=== PATIENT | female | born 1985 | race Caucasian/White ===

== ENCOUNTER 2019-12-05 08:46 | Observation (INO) ==
[2019-12-05 10:51] LABS: Basophils # 0.1 10*3/uL (0.0-0.2); Basophils % 0.3 % (0.0-0.8); Eosinophils # 0.1 10*3/uL (0.0-0.87); Eosinophils % 0.4 % (0.00-10.9); Hematocrit 36.7 VOL% (35.7-47.0); Hemoglobin 12.2 GM/DL (12.0-16.0); Immature Granulocytes % 0.5 %; Immature Granulocytes Absolute 0.08 #; Lymphocytes # 2.3 10*3/uL (1.4-4.0); Lymphocytes % 14.3 % (21.3-54.2); Mean Corpuscular HGB Conc 33.2 GM/DL (32-36); Mean Corpuscular Volume 81.2 FL (87-102); Monocytes % 6.3 % (1.7-12.7); Neutrophils % 78.2 % (38.7-73.9); Osmolality,Calculated 275.5 MOS/KG (273-304); Platelet Count 388 T/CUMM (130-400); Red Blood Count 4.52 MC/CUMM (3.8-5.5); Red Cell Distribution Width 13.5 % (9.3-17.3); White Blood Count 15.7 T/CUMM (4-12)
[2019-12-05 10:53] LABS: Bacteria,Urine Occasional /HPF (Few); Bilirubin,Urine Negative (Negative); Blood, Urine Negative (Negative); Glucose,Urine (UA) Negative (Negative); Ketones,Urine 5 mg/dL (Negative); Mucus,Urine Many /LPF (Occasional); Nitrite,Urine Negative (Negative); Protein,Urine 30 MG/DL; RBC,Urine 10 /HPF (0-4); Squamous Epithelial Cell,Urine Moderate /HPF (0-10); Urine Appearance CLEAR (Clear); Urine Color Amber (Yellow); Urine Urobilinogen < 2.0 EU/DL (0.2-1.0); WBC,Urine 2 /HPF (0-6)
[2019-12-05] MEDS ORDERED: metroNIDAZOLE INJ 500 MG in PREMIX 1 EACH IV STA (11:43)
[2019-12-05] MEDS ORDERED: LEVOFLOXACIN INJ 500 MG in PREMIX 1 EACH IV STA (11:43)
[2019-12-05] MEDS ORDERED: BUPIVACAINE MPF 0.25% 30 ML VIAL ONE (12:19)
[2019-12-05] MEDS ORDERED: LIDOCAINE 1%/EPI INJ 20 ML VIAL ONE (12:19)
[2019-12-05] MEDS ORDERED: MEPERIDINE 25 MG/1 ML VIAL IV PRN (13:03)
[2019-12-05] MEDS ORDERED: diphenhydrAMINE 50 MG/1 ML VIAL IV PRN (13:03)
[2019-12-05] MEDS ORDERED: PROMETHAZINE INJ 25 MG in SODIUM CHLORIDE 0.9% 50 ML IV PRN (13:03)
[2019-12-05] MEDS ORDERED: ONDANSETRON 4 MG/2 ML VIAL IV PRN ×2 (13:03→13:10)
[2019-12-05] MEDS ORDERED: HYDROmorphone 2 MG/1 ML VIAL IV PRN (13:10)
[2019-12-05] MEDS ORDERED: MIDAZOLAM 2 MG/2 ML VIAL ONE (13:19)
[2019-12-05] MEDS ORDERED: SEVOFLURANE 1 UNIT/15 MINUTE INH ONE (13:19)
[2019-12-05] MEDS ORDERED: LIDOCAINE 2% 5 ML VIAL ONE (13:19)
[2019-12-05] MEDS ORDERED: propofoL 200 MG/20 ML VIAL IV ONE (13:19)
[2019-12-05] MEDS ORDERED: fentaNYL 100 MCG/2 ML VIAL ONE (13:19)
[2019-12-05] MEDS ORDERED: DEXAMETHASONE 4 MG/1 ML VIAL ONE (13:19)
[2019-12-05] MEDS ORDERED: KETOROLAC 30 MG/1 ML VIAL ONE (13:20)
[2019-12-05] MEDS ORDERED: LACTATED RINGERS 1,000 ML IV ONE (13:20)
[2019-12-05] MEDS ORDERED: ONDANSETRON 4 MG/2 ML VIAL ONE (13:20)
[2019-12-05] MEDS ORDERED: INFLUENZA VIRUS VACCINE 0.5 ML SYRINGE IM ONE (13:52)
[2019-12-05] MEDS: metroNIDAZOLE INJ 500 MG in PREMIX 1 EACH IV SCH ×2 (14:57→21:23)
[2019-12-05] MEDS ORDERED: DULoxetine 30 MG CAPSULE PO SCH (21:00)
[2019-12-05] MEDS ORDERED: tiZANidine 4 MG TABLET PO PRN (21:00)
[2019-12-06 05:37] LABS: Basophils % 0.1 % (0.0-0.8); Hematocrit 34.3 VOL% (35.7-47.0); Hemoglobin 11.2 GM/DL (12.0-16.0); Immature Granulocytes % 0.4 %; Immature Granulocytes Absolute 0.06 #; Lymphocytes # 2.4 10*3/uL (1.4-4.0); Lymphocytes % 15.2 % (21.3-54.2); Mean Corpuscular HGB Conc 32.7 GM/DL (32-36); Mean Corpuscular Volume 81.7 FL (87-102); Mean Platelet Volume 10.7 FL (9.6-12.0); Monocytes % 5.7 % (1.7-12.7); Neutrophils % 78.6 % (38.7-73.9); Platelet Count 403 T/CUMM (130-400); Red Cell Distribution Width 13.4 % (9.3-17.3); White Blood Count 15.8 T/CUMM (4-12)
[2019-12-06] MEDS ORDERED: ENOXAPARIN 40 MG/0.4 ML SYRINGE SUBCUT SCH (07:00)
[2019-12-06] MEDS: metroNIDAZOLE INJ 500 MG in PREMIX 1 EACH IV SCH (07:07)
[2019-12-06 11:38] VITALS: BP 123/68
[2019-12-06] MEDS ORDERED: LEVOFLOXACIN INJ 500 MG in PREMIX 1 EACH IV SCH (12:00)
== END 2019-12-06 16:47 | disposition home or self-care (01) ==
LOC: N.ED 08:46 → INTOOBSV 12:02 → N.EDINP 12:02 → N.3E 13:30
PROVIDERS: ADMIT Surgery; ATTEND Surgery